=== PATIENT | female | born 1990 | race Caucasian/White ===

== ENCOUNTER 2019-05-24 02:19 | Emergency (ER) | payer SELFPAY ==
[2019-05-24] MEDS ORDERED: Oseltamivir 75 MG CAP ONE (03:10)
[2019-05-24] MEDS ORDERED: traMADol HCl 50 MG TAB ONE (03:10)
== END 2019-05-24 03:15 | disposition home or self-care (01) ==
LOC: BURERS 02:19
DX: J11.1 Influenza due to unidentified influenza virus with other respiratory manifestations (principal); K21.9 Gastro-esophageal reflux disease without esophagitis; J45.909 Unspecified asthma, uncomplicated; F41.9 Anxiety disorder, unspecified; F32.9 Major depressive disorder, single episode, unspecified; Z79.899 Other long term (current) drug therapy
CPT/HCPCS: 99283

== ENCOUNTER 2020-06-21 12:48 | Emergency (ER) | payer OTHER, SELFPAY ==
[2020-06-22 16:17] LABS: SARS-CoV-2 PCR by NAA Not Detected (NotDetected)
== END 2020-06-21 13:40 | disposition home or self-care (01) ==
LOC: BURERS 12:48
DX: B34.9 Viral infection, unspecified (principal); Z20.822 Contact with and (suspected) exposure to COVID-19
CPT/HCPCS: 87081; 87430; 87635; 87804; 99283; U0003; U0005

== ENCOUNTER 2021-03-19 14:03 | Emergency (ER) | payer OTHER ==
[2021-03-19] MEDS ORDERED: predniSONE 20 MG TAB ONE (14:52)
[2021-03-20 18:57] LABS: SARS-CoV-2 PCR by NAA Not Detected (NotDetected)
== END 2021-03-19 15:00 | disposition home or self-care (01) ==
LOC: BURERS 14:03
DX: R05.9 Cough, unspecified (principal); R09.81 Nasal congestion; R43.8 Other disturbances of smell and taste; Z20.822 Contact with and (suspected) exposure to COVID-19
CPT/HCPCS: 99283; J7512; U0003; U0005

== ENCOUNTER 2021-05-22 05:31 | Emergency (ER) | payer OTHER ==
[2021-05-22] MEDS ORDERED: Ketorolac Tromethamine 30 MG/ML VIAL ONE (06:28)
[2021-05-22] MEDS ORDERED: diphenhydrAMINE 50 MG/ML VIAL ONE (06:28)
[2021-05-22] MEDS ORDERED: Prochlorperazine 10 MG/2 ML VIAL ONE (06:28)
== END 2021-05-22 07:13 | disposition home or self-care (01) ==
LOC: BURERS 05:31
DX: G43.909 Migraine, unspecified, not intractable, without status migrainosus (principal); Z79.899 Other long term (current) drug therapy
CPT/HCPCS: J0780; J1200; J1885

== ENCOUNTER 2021-05-22 13:31 | Emergency (ER) | payer OTHER ==
[2021-05-22] MEDS ORDERED: Magnesium 2 GM/50 ML BAG (IN WATER) ONE (14:48)
[2021-05-22] MEDS ORDERED: Ketorolac Tromethamine 30 MG/ML VIAL ONE (14:48)
[2021-05-22] MEDS ORDERED: diphenhydrAMINE 50 MG/ML VIAL ONE (14:48)
[2021-05-22] MEDS ORDERED: Metoclopramide HCl 10 MG/2 ML VIAL ONE (15:39)
== END 2021-05-22 16:23 | disposition home or self-care (01) ==
LOC: BURERS 13:31
DX: G43.909 Migraine, unspecified, not intractable, without status migrainosus (principal); Z79.899 Other long term (current) drug therapy
CPT/HCPCS: 96365; 96374; 96375; J0780; J1200; J1885; J2765; J3475

== ENCOUNTER 2021-08-29 19:42 | Emergency (ER) | payer OTHER ==
[2021-08-29] MEDS ORDERED: Acetaminophen 500 MG TAB ONE (19:57)
[2021-08-29] MEDS ORDERED: traMADol HCl 50 MG TAB ONE (20:27)
== END 2021-08-29 20:31 | disposition home or self-care (01) ==
LOC: BURERS 19:42
DX: S00.03XA Contusion of scalp, initial encounter (principal); F17.200 Nicotine dependence, unspecified, uncomplicated; W22.8XXA Striking against or struck by other objects, initial encounter
CPT/HCPCS: 70450

== ENCOUNTER 2021-10-11 16:29 | Emergency (ER) | payer OTHER ==
[2021-10-11] MEDS ORDERED: Ketorolac Tromethamine 30 MG/ML VIAL ONE (16:55)
[2021-10-11] MEDS ORDERED: diphenhydrAMINE 50 MG/ML VIAL ONE (16:55)
[2021-10-11] MEDS ORDERED: Metoclopramide HCl 10 MG/2 ML VIAL ONE (16:55)
[2021-10-11] MEDS ORDERED: Dexamethasone 10 MG/ML VIAL ONE (17:56)
== END 2021-10-11 18:24 | disposition home or self-care (01) ==
LOC: BURERS 16:29
DX: R51.9 Headache, unspecified (principal)
CPT/HCPCS: 96365; 96375; J1100; J1200; J1885; J2765

== ENCOUNTER 2022-01-01 11:47 | Emergency (ER) | payer OTHER | END 2022-01-01 12:24 | disposition home or self-care (01) | LOC: BURERS 11:47 | DX: J06.9 Acute upper respiratory infection, unspecified (principal); Z20.822 Contact with and (suspected) exposure to COVID-19 | CPT/HCPCS: 99283; U0003; U0005 ==

== ENCOUNTER 2023-01-21 12:17 | Emergency (ER) | payer MEDICAID, OTHER, SELFPAY | END 2023-01-21 14:26 | disposition home or self-care (01) | LOC: BURERS 12:17 | DX: R42 Dizziness and giddiness (principal) | CPT/HCPCS: 70450 ==